=== PATIENT | male | born 1945 | race Hispanic/Latino ===

== ENCOUNTER 2017-08-28 08:00 | Inpatient (IN) | payer OTHER ==
[2017-08-28 10:05] LABS: Absolute Lymphocytes (CBC) 1.8 K/uL (0.7-4.9); Absolute Monocytes 0.6 K/uL (0.1-1.3); Absolute Neutrophil 3.3 K/uL (1.8-8.0); Eosinophils % 7.7 % (0-4.4); Hematocrit 47.7 % (39.6-49.0); Lymphocytes % 28.6 % (15.3-44.8); MCH 30.5 pg (27.0-35.0); MCV 91.6 fL (80-100); MPV 8.9 fL (7.6-11.3); Monocytes % 9.6 % (3.3-12.3); RBC Red Blood Cell Count 5.21 M/uL (4.33-5.43)
[2017-08-28 10:09] LABS: Protime INR 1.25
--- NOTE | 2017-08-28 10:09 | RAD REPORT ---
EXAM DESCRIPTION: RAD - Chest Pa And Lat (2 Views) - 08/28/2017 9:58 am CLINICAL HISTORY: Diabetes COMPARISON: None. FINDINGS: The lungs are emphysematous but clear. The heart is normal in size. No displaced fractures . IMPRESSION: COPD.
--- NOTE | 2017-08-28 15:40 | EKG ---
Test Date: 2017-08-28 Test Time: 09:14:38 Manager Restaurant: [employer] MEASUREMENT RESULTS: Intervals: Rate: 51 DE: 170 QRSD: 126 QT: 466 QTc: 429 Barre: P: -5 DE: 170 QRS: 24 T: 46 INTERPRETIVE STATEMENTS: Sinus bradycardia Right bundle branch block Abnormal ECG Compared to ECG 02/10/2013 13:05:19 Sinus rhythm no longer present Electronically Signed On 08-28-17 15:37:45 CDT by Abraham Gao
[2017-09-17] MEDS ORDERED: NA CHLORIDE 0.9% 1,000 ML ONE ×3 (07:20→13:42)
[2017-09-17] MEDS ORDERED: CEFAZOLIN/SWI 1gm 2 GM/20 ML SYR ONE (07:20)
[2017-09-17] MEDS ORDERED: FENTANYL CITR 250 MCG/5 ML ONE (08:54)
[2017-09-17] MEDS ORDERED: MIDAZOLAM HCL 2 MG/2 ML INJ ONE (08:55)
[2017-09-17] MEDS ORDERED: TRANEXAMIC ACID 1,000 MG in NA CHLORIDE 0.9% 50 ML IV SCH (09:00)
[2017-09-17] MEDS ORDERED: BUPIVACA 0.5%/EPI 0.0005%/PF 10 ML VIAL ONE ×2 (09:19→11:30)
[2017-09-17] MEDS ORDERED: DEXAMETHASONE 4 MG/ML VIAL ONE (09:43)
[2017-09-17] MEDS ORDERED: ROPLVACAINE HCL 20 ML ONE (09:43)
[2017-09-17] MEDS ORDERED: LIDOCAINE 2% MPF 5 ML VIAL ONE (10:01)
[2017-09-17] MEDS ORDERED: PROPOFOL 200 MG/20 ML VIAL IV ONE (10:01)
[2017-09-17] MEDS ORDERED: EPHEDRINE SULF 50 MG/ML SYR ONE (10:20)
[2017-09-17] MEDS ORDERED: KETOROLAC 30 MG/ML INJ ONE (12:10)
[2017-09-17] MEDS ORDERED: DOCUSATE NA 100 MG CAP PO PRN (12:48)
[2017-09-17] MEDS ORDERED: ONDANSETRON 4 MG/2 ML VIAL IV PRN (12:48)
[2017-09-17] MEDS ORDERED: MORPHINE 4 MG/ML SYR IV PRN (12:48)
--- NOTE | 2017-09-17 12:48 | P.BOP ---
Preoperative diagnosis: right knee osteoarthritis Postoperative diagnosis: same Primary procedure: right total knee arthroplasty Secondary procedure: none Production Floater: NONE,NONE Estimated blood loss: 50 cc Specimen: right knee bone fragments Findings: see dictation Anesthesia: General Complications: None Drain(s): Urinary catheter (removed postoperatively) Implants: Bioment 67.5 CR femur, 83 tibia, 12mm e-poly, 34 patella Fluids & blood products: per anesthesia; TT: 86 mins @ 300 mmHg Transferred to: Recovery Room Condition: Good
[2017-09-17 13:21] LABS: Hematocrit 44.1 % (39.6-49.0)
--- NOTE | 2017-09-17 13:33 | RAD REPORT ---
EXAM DESCRIPTION: RAD - Knee Right 2 View - 09/17/2017 1:22 pm CLINICAL HISTORY: Right knee surgery FINDINGS: Post surgical changes of a knee arthroplasty are seen. The prosthesis is in good position. No acute abnormality is displayed
[2017-09-17 13:40] VITALS: O2SAT 95
[2017-09-17 14:43] VITALS: BMI 34.2
[2017-09-17] MEDS: LISINOPRIL 20 MG TAB PO SCH (17:16)
[2017-09-17] MEDS: CEFAZOLIN/SWI 2gm 2 GM/20 ML SYR IV SCH (17:17)
[2017-09-17] MEDS: CARVEDILOL 12.5 MG TAB PO SCH (20:14)
[2017-09-17] MEDS: OXYCODONE *CR* 10 MG TAB PO SCH (20:15)
--- NOTE | 2017-09-17 20:23 | P.OP ---
Preoperative diagnosis: right knee osteoarthritis Postoperative diagnosis: same Primary procedure: right total knee arthroplasty Secondary procedure: none Anesthesia: general LMA Estimated blood loss: 50 cc Specimen: right knee bone remnants Findings: see dictation Operative Technique: Indication For Procedure: Mr. Zimmerman is a 72-year-old male, presented to my clinic with severe right knee osteoarthritis and history of poliomyelitis. He underwent conservative treatment measures including corticosteroid injections, viscosupplementation injections, NSAIDs, and home therapy. The patient failed his treatment measures and elected to proceed with right total knee arthroplasty. I discussed with the patient risks and benefits associated with the procedure and he expressed understanding. Description Of Procedure: After informed consent was obtained, the patient was identified in the preoperative holding area. The right lower extremity was marked. The patient was then brought back to the PACU and underwent a right femoral nerve block. He was brought back to the operating room, transferred to the operating table in supine fashion and placed under general LMA anesthesia. Right lower extremity was then prepped and draped in usual sterile fashion. A time-out was initiated. The correct patient and procedure were confirmed and identified. The patient did receive his preoperative prophylactic antibiotics. The right lower extremity was then exsanguinated using an Esmarch. The tourniquet was inflated to 300 mmHg. Approximately, a 15 cm longitudinal incision was made over the knee centered over the patella. Dissection was taken down with an extensor mechanism and full thickness skin flaps were made. A medial parapatellar approach arthrotomy was performed and the patella was everted and dislocated laterally. The patella overall had significant degenerative changes with osteophytes and grade IV chondromalacia. At that point, it was decided to resurface the patella. The patient had undergone MRI for preoperative cutting blocks that were made. Cutting blocks were placed on the femur. The 4 pins were placed in the distal femoral block. Distal femoral cut was made. After this was made, a Chamfer cutting block was placed on the distal femur. The distal femur was cut anteriorly and an edgar wing was used to ensure there was no notching of the anterior cortex of the distal femur. The distal femur was then cut. Bony debris was removed. Next, the soft tissues medially were elevated to the mid coronal plane on the proximal tibia as the patient did have a valgus alignment, did open up the tissues medially and laterally. Tibial cutting block was then placed on the proximal tibia and the pins were placed. There was good overall alignment of the tibia and, the tibia was cut in overall good alignment. The femoral and tibial components were then trialed using a size 62.5 CR femur and a size 83 tibia. The patella was then prepared and a planar was used and a size 34 patella was selected. The knee felt stable in flexion and extension using a 12 mm poly and an anterior stabilized poly was selected. At that point, the knee was irrigated thoroughly with pulse lavage Cement was prepared on the back table. Cement was then placed on the implants as well as the distal femur and proximal tibia. Final implants were size 62.5 Biomet CR femur, 34 patella and a size 83 tibia. The loose cement was removed without complication. A size 12 poly was selected and there was good overall stability as well as motion and alignment. When cement hardened, the trial poly was removed and a 12-mm E Biomet poly was placed and locked into position. The knee was then again irrigated with normal saline , placed through range of motion. There was good alignment, the patella was in appropriate groove. Next, the extensor mechanism was closed with a #1 Vicryl in interrupted and running fashion. The tissues were approximated using an 0 Vicryl and subcutaneous skin was approximated using the 2-0 Vicryl. Skin was approximated using 3-0 nylon. Sterile dressings were applied. The patient was awakened and transferred to PACU in stable condition. Postoperative Plan: He will be admitted for pain control and for physical therapy. We will continue to monitor his blood count. Patient will be admitted for at least 2 midnights given his history of poliomyelitis and foot deformity making mobilization difficult. Complications: None Drain(s): Urinary catheter (removed postoperatively) Implants: Biomet 62.5 CR poly, 83 tibia, 12 mm e-poly Fluids & blood products: per anesthesia record; TT: 86 mins @ 300 mmHg Transferred to: Recovery Room Condition: Good
[2017-09-17 20:47] LABS: Urine Appearance CLEAR; Urine Bilirubin NEGATIVE (NEG); Urine Blood NEGATIVE (NEG); Urine Color YELLOW; Urine Glucose 1+ (NEG); Urine Protein NEGATIVE (NEG)
[2017-09-17 21:27] LABS: Urine Bacteria <20 /HPF (NONE SEEN); Urine Culture Reflex Order REFLEXED; Urine Microscopic Reflex ORDER UMIC; Urine Mucus 1+ /HPF (NONE SEEN); Urine RBC <5 /HPF (NONE SEEN)
[2017-09-17] MEDS: HYDROCODONE/APAP 7.5/325 MG TAB PO PRN (22:50)
[2017-09-18] MEDS: CEFAZOLIN/SWI 2gm 2 GM/20 ML SYR IV SCH ×2 (00:51→08:39)
[2017-09-18 05:27] LABS: Absolute Lymphocytes (CBC) 1.4 K/uL (0.7-4.9); Absolute Monocytes 1.1 K/uL (0.1-1.3); Absolute Neutrophil 7.9 K/uL (1.8-8.0); Basophils % 0.3 % (0-1.3); Eosinophils % 0.3 % (0-4.4); Lymphocytes % 13.8 % (15.3-44.8); MCH 30.7 pg (27.0-35.0); MCV 92.3 fL (80-100); Monocytes % 10.6 % (3.3-12.3); RBC Red Blood Cell Count 4.55 M/uL (4.33-5.43)
[2017-09-18 05:49] LABS: Potassium 3.8 mEq/L (3.6-5.0)
[2017-09-18] MEDS: ENOXAPARIN 30 MG/0.3 ML SQ SCH ×2 (06:00→16:59)
[2017-09-18] MEDS: CELECOXIB 100 MG CAPSULE PO SCH (08:37)
[2017-09-18] MEDS: METFORMIN HCL 500 MG TAB PO SCH (08:38)
[2017-09-18] MEDS: OXYCODONE *CR* 10 MG TAB PO SCH ×2 (08:38→20:30)
[2017-09-18] MEDS: CARVEDILOL 12.5 MG TAB PO SCH ×2 (08:38→20:31)
--- NOTE | 2017-09-18 11:45 | P.PN ---
Subjective Date of Service: 09/18/17 Chief Complaint: s/p R TKA Subjective: No C/O voiced pain controlled Physical Examination - Vital Signs Temperature: 98.6 F Blood Pressure: 131/79 Pulse: 83 Respirations: 18 Pulse Ox (%): 97 - Physical Exam General: Alert, In no apparent distress Musculoskeletal: Other (RLE: dressing c/d/i; +EHL/FHL/GSC/TA; sensation grossly intact distally; bcr in all digits) - Studies Laboratory Data (last 24 hrs) 09/18/17 04:36: Sodium 138, Potassium 3.8, BUN 20, Creatinine 1.01, Glucose 153 H 09/18/17 04:36: WBC 10.5, Hgb 14.0, Hct 42.0, Plt Count 188 09/17/17 13:03: Hgb 14.7, Hct 44.1 Assessment And Plan - Plan Ranjeet is a 72 yo male s/p R TKA POD#1 -H/H stable; will continue to monitor -PT to mobilize; WBAT RLE; may have difficulty secondary to h/o poliomyelitis and chronic right foot deformity -lovenox for DVT prophylaxis -will be admitted for at least 2 midnights -pain control with PRN Odon and morphine and scheduled celebrex, oxycontin
[2017-09-18] MEDS: LISINOPRIL 20 MG TAB PO SCH (16:58)
[2017-09-18] MEDS: HYDROCODONE/APAP 7.5/325 MG TAB PO PRN (18:32)
[2017-09-19] MEDS: HYDROCODONE/APAP 7.5/325 MG TAB PO PRN (04:38)
[2017-09-19 05:07] LABS: Absolute Lymphocytes (CBC) 1.3 K/uL (0.7-4.9); Absolute Monocytes 1.1 K/uL (0.1-1.3); Absolute Neutrophil 5.6 K/uL (1.8-8.0); Basophils % 0.5 % (0-1.3); Eosinophils % 1.9 % (0-4.4); Lymphocytes % 16.1 % (15.3-44.8); MCV 91.7 fL (80-100); MPV 8.4 fL (7.6-11.3); Monocytes % 13.5 % (3.3-12.3); RBC Red Blood Cell Count 4.47 M/uL (4.33-5.43)
[2017-09-19] MEDS: ENOXAPARIN 30 MG/0.3 ML SQ SCH (05:53)
[2017-09-19 05:55] LABS: Potassium 4.3 mEq/L (3.6-5.0)
--- NOTE | 2017-09-19 07:35 | P.DS ---
Admission Date: 09/17/17 Discharge Date: 09/19/17 Disposition: ROUTINE DISCHARGE Discharge Condition: GOOD Reason for Admission: s/p R TKA Procedures: right total knee arthroplasty Brief History of Present Illness: Ranjeet is a 72 yo male w/ h/o HTN, DM, and poliomyelitis who underwent right TKA on 09/17/2017 without complication. He was admitted to the floor for pain control, HTN, DM monitoring and physical therapy given his history of right foot deformity with polio. Hospital Course: Patient was admitted to the floor postoperatively and did well. His vital signs remained stable, his H/H remained stable, and his pain was controlled. Physical therapy was consulted and he mobilized well. He was discharged on 09/19 in stable condition. He was discharged with Washburn for pain control and Xarelto for DVT prophylaxis while home. He will return to my clinic in 2 weeks for suture removal. Vital Signs/Physical Exam: Temp Pulse Resp BP Pulse Ox 97.6 F 96 H 18 110/69 99 09/19/17 04:00 09/19/17 04:00 09/19/17 04:00 09/19/17 04:00 09/19/17 04:00 Laboratory Data at Discharge: WBC 8.3 K/uL (4.3-10.9) D 09/19/17 04:52 Hgb 14.3 g/dL (13.6-17.9) 09/19/17 04:52 Hct 41.0 % (39.6-49.0) 09/19/17 04:52 Plt Count 158 K/uL (152-406) 09/19/17 04:52 PT 14.8 SECONDS (9.5-12.5) H 08/28/17 09:00 INR 1.25 08/28/17 09:00 APTT 32.2 SECONDS (24.3-36.9) 08/28/17 09:00 Sodium 136 mEq/L (135-145) 09/19/17 04:52 Potassium 4.3 mEq/L (3.6-5.0) 09/19/17 04:52 BUN 18 mg/dL (6-20) 09/19/17 04:52 Creatinine 1.00 mg/dL (0.61-1.24) 09/19/17 04:52 Glucose 139 mg/dL (65-120) H 09/19/17 04:52 Home Medications: Carvedilol [Coreg*] 12.5 mg PO BID 08/28/17 Lisinopril [Prinivil*] 20 mg PO DAILY AFTER SUPPER 08/28/17 Metformin HCl [Glucophage*] 500 mg PO DAILY WITH BREAKFAST 08/28/17 Rivaroxaban [Xarelto] 10 mg PO DAILY 08/28/17 Hydrocodone 7.5/APAP 325 [[place]burn 7.5/325 mg*] 1 tab PO Q4H PRN tab 09/19/17 Patient Discharge Instructions: keep dressing clean, dry, and intact; start Xarelto on Friday09/20/2017 with breakfast and take once daily. Diet: Regular Activity: Weight bearing as tolerated (RLE) Followup: Vadim Rush MD [ACTIVE - CAN ADMIT] -
[2017-09-19] MEDS: OXYCODONE *CR* 10 MG TAB PO SCH (09:08)
[2017-09-19] MEDS: METFORMIN HCL 500 MG TAB PO SCH (09:08)
[2017-09-19] MEDS: CARVEDILOL 12.5 MG TAB PO SCH (09:08)
[2017-09-19] MEDS: CELECOXIB 100 MG CAPSULE PO SCH (09:08)
[2017-09-19 15:06] VITALS: BP 92/58; TEMP 99.4
== END 2017-09-19 13:04 | disposition home health service (06) | DRG 470 ==
LOC: EDSTATUS 09-03 07:30 → OBSVTOIN 09-17 06:00 → DSO 09-17 06:00 → INTOOBSV 09-17 06:00 → 2ND 09-17 13:59
PROVIDERS: ADMIT Orthopaedic Surgery Sports Medicine; ATTEND Orthopaedic Surgery Sports Medicine
PROC: 0SRC0J9 Replacement of Right Knee Joint with Synthetic Substitute, Cemented, Open Approach (ICD-10-PCS; principal; 2017-09-17 09:00)
DX: M17.11 Unilateral primary osteoarthritis, right knee (principal); I10 Essential (primary) hypertension; E11.8 Type 2 diabetes mellitus with unspecified complications; A80.9 Acute poliomyelitis, unspecified
CPT/HCPCS: 36415; 71046; 80048; 81003; 81015; 82962; 85014; 85018; 85025; 85610; 85730; 87086; 87088; 88304; 88311; 93005; 97163; J0690; J1650; J2250; J2795; J7030